=== PATIENT | female | born 1950 | race Caucasian/White ===

== ENCOUNTER 2017-02-17 13:44 | Inpatient (IN) | payer MEDICAID ==
[~2017-02-17] VITALS: Ht 167.6 cm; Wt 115.7 kg
--- NOTE | 2017-02-17 13:50 | NUR ---
[id number] FROM HOME: FEVER, FLU SYMPTOMS. A/OX 2, LETHARGIC. BREATHING EVEN AND UNLABORED. NO SOB. VITALS STABLE. SAFETY AND COMFORT MEASURES IN PLACE. AWAITING MD ORDERS.
--- NOTE | 2017-02-17 14:20 | NUR ---
NEW IV STARTED ON LAC, 20 G. BLOOD DRAWN AND SENT TO LAB.
--- NOTE | 2017-02-17 14:45 | NUR ---
URINE OBTAINED VIA STRAIGHT CATH AND SENT TO LAB PER MD ORDERS.
[2017-02-17] MEDS ORDERED: IV NS 0.9% 1,000 ML BAG IV ONE (15:00)
[2017-02-17] MEDS ORDERED: ACETAMINOPHEN 650 MG/SUPP.RECT RC ONE ×3 (15:00→21:25)
[2017-02-17 15:02] LABS: BASOPHILS % (AUTO) 0.1 % (0.0-2.0); EOSINOPHILS % (AUTO) 0.1 % (0.0-6.0); HEMATOCRIT 43 % (33-45); HEMOGLOBIN 14.1 g/dL (11.5-14.8); LYMPHOCYTES # (AUTO) 0.8 /CMM (0.8-4.8); LYMPHOCYTES % (AUTO) 5.3 % (20.0-44.0); MEAN CORPUSCULAR HEMOGLOBIN 28 PG (26.0-33.0); MEAN CORPUSCULAR HGB CONC 33 g/dl (31.0-36.0); MEAN CORPUSCULAR VOLUME 85 fL (82-100); MONOCYTES # (AUTO) 0.6 /CMM (0.1-1.30); MONOCYTES % (AUTO) 3.6 % (2.0-12.0); NEUTROPHILS % (AUTO) 90.9 % (43.0-81.0); PLATELET COUNT (AUTO) 244 /CMM (150-450); RDW COEFFICIENT OF VARIATION 13.8 (11.5-15.0); RED BLOOD CELL COUNT(AUTO) 5.01 MIL/uL (4.0-5.2); WHITE BLOOD COUNT (AUTO) 15.4 K/uL (4.3-11.0)
[2017-02-17 15:09] LABS: INR 0.98 (0.87-1.13); PROTHROMBIN TIME 10.2 SECS (9.5-12.7)
[2017-02-17 15:12] LABS: ALANINE AMINOTRANSFERASE 34 U/L (12-78); ALBUMIN 3.6 g/dL (3.4-5.0); ALKALINE PHOSPHATASE 81 U/L (46-116); ASPARTATE AMINOTRANSFERASE 20 U/L (15-37); BILIRUBIN,DIRECT 0.1 mg/dL (0.0-0.2); BILIRUBIN,TOTAL 0.9 mg/dL (0.2-1.0); CALCIUM, SERUM 9.5 mg/dL (8.5-10.1); CARBON DIOXIDE 29 mmol/L (21-32); CHLORIDE 101 mmol/L (98-107); CREATININE 0.8 mg/dL (0.6-1.3); GLUCOSE 175 mg/dL (74-106); POTASSIUM 3.8 mmol/L (3.5-5.1); SODIUM SERUM 139 mmol/L (136-145); TOTAL PROTEIN, SERUM 7.7 g/dL (6.4-8.2); UREA NITROGEN, BLOOD 17 mg/dL (7-18)
[2017-02-17 15:14] LABS: TROPONIN I < 0.017 ng/mL (0.00-0.056)
[2017-02-17 15:15] LABS: APPEARANCE,URINE CLEAR (CLEAR); BILIRUBIN,URINE NEGATIVE (NEGATIVE); BLOOD, URINE 1+ Ery/uL (NEGATIVE); COLOR,URINE YELLOW (YELLOW); KETONES,URINE NEGATIVE (NEGATIVE); LEUKOCYTE ESTERASE ,URINE NEGATIVE (NEGATIVE); NITRITE, URINE NEGATIVE (NEGATIVE); PH,URINE 7.5 (5.0-8.0); PROTEIN,URINE 3+ mg/dl (NEGATIVE); UGLUCOSE NEGATIVE (NEGATIVE)
--- NOTE | 2017-02-17 15:15 | NUR ---
PATIENT MEDICATED PER MD ORDERS.
--- NOTE | 2017-02-17 15:35 | NUR ---
PATIENT TAKEN TO CT VIA STRETCHER.
[2017-02-17 15:40] LABS: BACTERIA,URINE None seen /HPF (None Seen); SQUAMOUS EPITHELIAL CELL,UR Few /HPF (None Seen); WBC,URINE 0-2 /HPF (0-3)
--- NOTE | 2017-02-17 15:51 | NUR ---
PATIENT RETURNED FROM CT. PER BATH ATTENDANT, UNABLE TO PERFORM CT D/T PATIENT MOVING CONSTANTLY.
[2017-02-17 16:06] LABS: BAND % (MANUAL) 6 % (0.0-5.0); LYMPHOCYTES % (MANUAL) 6 % (16-48); MONOCYTES % (MANUAL) 3 % (0-11.0); NEUTROPHILS % (MANUAL) 85 (42-76)
--- NOTE | 2017-02-17 16:54 | NUR ---
CALLED , TRANSFERRED CALL TO
--- NOTE | 2017-02-17 16:54 | NUR ---
CALLED NURSING SUP. FOR TELE BED
--- NOTE | 2017-02-17 16:55 | NUR ---
PATIENT TAKEN BACK TO CT VIA STRETCHER.
--- NOTE | 2017-02-17 17:08 | NUR ---
patient returned from ct in stable condition.
[2017-02-17] MEDS ORDERED: DIGO125T PO (17:18)
[2017-02-17] MEDS ORDERED: METO25TA3 PO (17:18)
[2017-02-17] MEDS ORDERED: TRIA1TAB5 PO (17:18)
[2017-02-17] MEDS ORDERED: LISI-603 PO (17:18)
[2017-02-17] MEDS ORDERED: PRAV40TA3 PO (17:18)
--- NOTE | 2017-02-17 17:22 | NUR ---
TELE 328-2
--- NOTE | 2017-02-17 17:33 | NUR ---
REPORT GIVEN TO ERMA HANNA FOR SAVAGE UPON ADMISSION.
--- NOTE | 2017-02-17 17:57 | NUR ---
CALLED , TRANSFERRED CALL TO
[2017-02-17] MEDS ORDERED: MEROPENEM 500 MG in IV NS 0.9% 50 ML IV ONE (18:00)
[2017-02-17] MEDS ORDERED: VANCOMYCIN 1 GM in IV D5W 250 ML IV ONE (18:00)
[2017-02-17] MEDS ORDERED: OSELTAMIVIR PHOSPHATE 75 MG CAPSULE PO ONE (18:00)
[2017-02-17] MEDS ORDERED: OSELTAMIVIR PHOSPHATE 75 MG CAPSULE ONE (18:37)
--- NOTE | 2017-02-17 19:27 | NUR ---
PATIENT TRANSPORTED TO [facility] VIA ACLS PROTOCOL. RNERMA TO PROVIDE SAVAGE.
[2017-02-17 19:30] VITALS: BP 157/73
--- NOTE | 2017-02-17 19:30 | NUR ---
RN NOTES RECEIVED PATIENT FROM ER VIA GURNEY, NON-VERBAL, RESPONDS TO VERBAL AND TACTILE STIMULATION, NO SOB, ON AUSCULTATION, LUNG SOUNDS ARE CLEAR IN ALL HANKINS, ABDOMEN IS FIRM, ACTIVE BOWEL SOUNDS, LEFT AC PERIPHERAL LINE IS PATENT AND SECURED WITH DRESSING, GIVEN VANCOMYCIN AND MERREM IV ABX IN ER. TEMPERATURE IS STILL ELEVATED AT 103F, RECEIVED TYLENOL 650 MG SUPP. PATIENT IS NOT ANSWERING QUESTIONS AT THIS TIME, DAUGHTER PROVIDED MEDICAL HISTORY. ORIENTED THE FAMILY MEMBER TO USE OF BED, AND CALL LIGHT.
[2017-02-17 20:00] VITALS: BP 157/73
[2017-02-17] MEDS: ACETAMINOPHEN 650 MG/SUPP.RECT RC PRN (21:30)
[2017-02-17] MEDS ORDERED: Potassium Chloride 20 MEQ in IV D5/0.45 NACL 1,000 ML IV PRN (21:30)
--- NOTE | 2017-02-17 21:44 | NUR ---
RN NOTES RECEIVED NEW ORDERS FROM DR. SANDHU, CONTINUE HOME MEDS.
[2017-02-17] MEDS ORDERED: LISINOPRIL (20MG) 20 MG TABLET ONE (21:49)
[2017-02-17] MEDS ORDERED: METOPROLOL SUCCINATE 25 MG TAB.SR.24H ONE (21:50)
[2017-02-17] MEDS ORDERED: CEFTRIAXONE 1 G VIAL ONE (21:51)
[2017-02-17] MEDS ORDERED: CEFTRIAXONE 2 G in IV D5W 100 ML IV SCH (22:00)
[2017-02-17] MEDS ORDERED: IV PREMIX D5 1/2NS + KCL 1,000 ML IV ONE (22:03)
[2017-02-17] MEDS: LISINOPRIL (20MG) 20 MG TABLET PO SCH (22:42)
[2017-02-17] MEDS: METOPROLOL SUCCINATE 25 MG TAB.SR.24H PO SCH (22:42)
--- NOTE | 2017-02-17 22:58 | NUR ---
RN NOTES RECHECKED TEMP 100.6 F. PATIENT IS AWAKE AND ALERT AND ANSWERING QUESTIONS. DAUGHTERS AT THE BEDSIDE
--- NOTE | 2017-02-17 23:52 | NUR ---
RN NOTES RECHECK TEMP 100.1F
[2017-02-18] VITALS: BP 102/48
[2017-02-18] MEDS ORDERED: ACETAMINOPHEN 650 MG/SUPP.RECT RC ONE (01:09)
[2017-02-18] MEDS: ACETAMINOPHEN 650 MG/SUPP.RECT RC PRN ×2 (01:31→09:41)
--- NOTE | 2017-02-18 01:33 | NUR ---
RN NOTES TEMP 101.1, GIVEN TYLENOL 650 MG SUPP VIA RC, COOLING MEASURES CONTINUED
[2017-02-18 04:00] VITALS: BP 138/68
--- NOTE | 2017-02-18 05:58 | NUR ---
RN NOTES RECHECK TEMP 99.1F
--- NOTE | 2017-02-18 06:36 | NUR ---
RN NOTES PATIENT IS ASLEEP, AROUSEABLE BY VOICE AND TOUCH, ABLE TO VERBALIZE NEEDS, NO COMPLAIN OF PAIN, GIVEN TYLENOL SUPP 650 MG PRN RC FOR FEVER DURING SHIFT, LEFT AC PERIPHERAL LINE IS PATENT AND INFUSING WELL. ALL DUE MEDICATIONS GIVEN, DAUGHTER AT THE BEDSIDE, CALL LIGHT WITHIN REACH.
[2017-02-18 06:57] VITALS: BP 141/70
--- NOTE | 2017-02-18 07:25 | NUR ---
RN OPEN NOTES RECEIVED REPORT FROM WET CHAR CONVEYOR TENDER NURSE. PATIENT IS IN BED, ALERT AND ORIENTED TO NAME, PLACE AND TIME. DAUGHTER, AXEL, AT BEDSIDE. NO SIGNS AND SYMPTOMS OF DISTRESS. DENIED PAIN. BED IN LOW POSITION, LOCKED AND TWO SIDE RAILS ARE UP. CALL LIGHT WITHIN REACH FOR SAFETY. WILL CONTINUE TO MONITOR AND ASSESS PATIENT THROUGH OUT MY SHIFT
[2017-02-18 08:17] LABS: BASOPHILS % (AUTO) 0.1 % (0.0-2.0); EOSINOPHILS % (AUTO) 0.1 % (0.0-6.0); HEMATOCRIT 36 % (33-45); LYMPHOCYTES # (AUTO) 1.5 /CMM (0.8-4.8); LYMPHOCYTES % (AUTO) 9.4 % (20.0-44.0); MEAN CORPUSCULAR HEMOGLOBIN 28 PG (26.0-33.0); MEAN CORPUSCULAR HGB CONC 34 g/dl (31.0-36.0); MEAN CORPUSCULAR VOLUME 84 fL (82-100); MONOCYTES % (AUTO) 6.4 % (2.0-12.0); NEUTROPHILS # (AUTO) 13.7 /CMM (1.8-8.9); PLATELET COUNT (AUTO) 215 /CMM (150-450); RDW COEFFICIENT OF VARIATION 13.8 (11.5-15.0); RED BLOOD CELL COUNT(AUTO) 4.24 MIL/uL (4.0-5.2); WHITE BLOOD COUNT (AUTO) 16.2 K/uL (4.3-11.0)
[2017-02-18 08:57] LABS: ALANINE AMINOTRANSFERASE 33 U/L (12-78); ALKALINE PHOSPHATASE 75 U/L (46-116); ASPARTATE AMINOTRANSFERASE 45 U/L (15-37); BILIRUBIN,TOTAL 0.8 mg/dL (0.2-1.0); CALCIUM, SERUM 8.4 mg/dL (8.5-10.1); CARBON DIOXIDE 25 mmol/L (21-32); CHLORIDE 105 mmol/L (98-107); CREATININE 0.7 mg/dL (0.6-1.3); GLUCOSE 171 mg/dL (74-106); POTASSIUM 3.8 mmol/L (3.5-5.1); SODIUM SERUM 138 mmol/L (136-145); UREA NITROGEN, BLOOD 12 mg/dL (7-18)
[2017-02-18] MEDS ORDERED: OSELTAMIVIR PHOSPHATE 75 MG CAPSULE PO SCH (09:00)
[2017-02-18] MEDS: LISINOPRIL (20MG) 20 MG TABLET PO SCH (09:45)
[2017-02-18] MEDS: TRIAMTERENE/HYDROCHLOROTHIAZID (37.5/25MG) 1 UDCAP PO SCH (09:46)
[2017-02-18 09:56] LABS: DIGOXIN < 0.20 ng/mL (0.90-2.00)
[2017-02-18] MEDS ORDERED: SITA1TAB6 PO (10:16)
[2017-02-18] MEDS: DIGOXIN 0.125 MG TABLET PO SCH (10:23)
[2017-02-18] MEDS ORDERED: DEXTROSE 50%-WATER 50 ML DISP.SYRIN IV PRN (11:30)
[2017-02-18] MEDS ORDERED: INSULIN GLARGINE, 100 UNIT/ML CARTRIDGE SQ SCH ×2 (11:30→22:00)
[2017-02-18] MEDS ORDERED: INSULIN REGULAR, HUMAN 100 UNIT/ML 3 ML VIAL SQ PRN (11:30)
[2017-02-18] MEDS: BLOOD SUGAR DIAGNOSTIC 1 EACH STRIP IN SCH ×3 (11:45→22:23)
[2017-02-18] MEDS: LINAGLIPTIN 5 MG TABLET PO SCH (11:52)
[2017-02-18 16:00] VITALS: BP 141/81
[2017-02-18] MEDS: ACETAMINOPHEN 325 MG TABLET PO PRN ×2 (16:39→22:30)
--- NOTE | 2017-02-18 19:30 | NUR ---
RN CLOSING NOTES GAVE REPORT TO FUR LINER NURSE. ALL PATIENT NEEDS ANTICIPATED AND ATTENDED. NO SIGNS AND SYMPTOMS OF DISTRESS. BED IN LOW POSITION, LOCKED AND TWO SIDE RAILS ARE UP. CALL LIGHT WITHIN REACH FOR SAFETY.
--- NOTE | 2017-02-18 19:40 | NUR ---
MS/COMPLIANCE QUALITY PERFORMANCE ANALYST; RECEIVED PT IN BED AWAKE,ALERT AND ORIENTED X 3. BREATHING NON LABORED. PT SAID PER DAUGHTER THE PT IS MUCH BETTER TODAY THAN YESTERDAY. IVF ON PROGRESS. PT SUPPOSED TO TRANSFER TO OTHER HOSPITAL PER DAY SHIFT REPORT. BED ON LOWER POSITION AND LOCKED FOR SAFETY. SIDE RAILS ARE UP FOR SAFETY. FAMILY MEMBERS AT THE BEDSIDE. CONTINUE TO MONITOR.
[2017-02-18 20:00] VITALS: BP 120/67
--- NOTE | 2017-02-18 20:35 | NUR ---
MS/ALLIANCES CONSULTANT; RECEIVED A CALL AT THIS TIME FROM [facility] HE SAID HE SPOKE WITH DR. Cally SANDHU THAT PT TO TRANSFER TO [facility] IN [facility] IS AVAILABLE. HE SAID ROOM # 282 [phone]. TO CALL THIS # [phone] FOR REPORT. [facility] # [phone].
--- NOTE | 2017-02-18 20:45 | NUR ---
MS/PUBLIC WORKS SUPERVISOR; I TALKED TO THE DAUGHTER , JUSTIN AND SHE REFUSED PT TO BE TRANSFERRED . I TOLD THE CHARGE NURSE EDDIE AND HE TALKED TO THE DAUGHTERS.
--- NOTE | 2017-02-18 20:50 | NUR ---
MS/MANAGER MERCHANDISING; CHARGE NURSE EDDIE SAID TO CALL AGAIN [facility] IF IT IS OK TO TRANSFER TOMORROW. I DID CALL [facility] AGAIN AND I GAVE THE PHONE TO EDDIE AND HE SPOKE TO HIM.
--- NOTE | 2017-02-18 21:50 | NUR ---
MS/EXTRUDER OPERATOR MULTIPLE; AMBULANCE WAS HERE TO STEAMFITTER PT TO TRANSFER TO [facility] AND CHARGE NURSE TALKED TO THE AMBULANCE PERSONNEL.
[2017-02-18] MEDS ORDERED: INSULIN DETEMIR 100 UNIT/ML CARTRIDGE SQ SCH (22:00)
[2017-02-18] MEDS ORDERED: PRAVASTATIN SODIUM 20 MG TABLET PO SCH (22:00)
--- NOTE | 2017-02-18 22:00 | NUR ---
MS/EDUCATION FACULTY MEMBER; BS 99 NO COVERAGE.
[2017-02-18] MEDS: METOPROLOL SUCCINATE 25 MG TAB.SR.24H PO SCH (22:29)
--- NOTE | 2017-02-18 22:30 | NUR ---
MS/OIL AND GAS SUPERINTENDENT; TEMP. 99.7 TYLENOL 650 MG PO Q6 PRN GIVEN.
--- NOTE | 2017-02-18 23:00 | NUR ---
MS/DURABILITY ENGINEER; PER CHARGE NURSE EDDIE TOLD ME THAT PT IS NOT LEAVING TONIGHT. HE CALLED DR. Cally SANDHU AND WITH ORDER TO HOLD DC TONIGHT.
--- NOTE | 2017-02-19 06:00 | NUR ---
MS/DETECTIVE CHIEF; BS 109 NO COVERAGE GIVEN. TEMP 98.4. C/O HEADACHE TYLENOL 650 MG PO Q6 PRN GIVEN.
[2017-02-19] MEDS: ACETAMINOPHEN 325 MG TABLET PO PRN (06:10)
[2017-02-19] MEDS: BLOOD SUGAR DIAGNOSTIC 1 EACH STRIP IN SCH ×2 (06:25→11:56)
--- NOTE | 2017-02-19 07:00 | NUR ---
MS/POLISHER IMPLANT; SLEPT FAIRLY. IVF ON PROGRESS. VOIDED TO THE BATHROOM. NASAL SWAB RT NARES OBTAINED FOR MRSA . WILL ENDORSE TO THE DAY SHIFT NURSE.
--- NOTE | 2017-02-19 07:30 | NUR ---
RN OPEN NOTES RECEIVED REPORT FROM TONE ARTIST APPRENTICE NURSE. PATIENT IS IN BED, ALERT AND ORIENTED TO NAME, PLACE AND TIME. DAUGHTER AT BEDSIDE. BED IN LOW POSITION, LOCKED AND TWO SIDE RAILS ARE UP. CALL LIGHT WITHIN REACH FOR SAFETY. NO SIGNS AND SYMPTOMS OF DISTRESS. BREATHING IS UNLABORED AND EVEN BILATERALLY. WILL CONTINUE TO MONITOR AND ASSESS PATIENT THROUGH OUT MY SHIFT
[2017-02-19 07:44] LABS: BASOPHILS % (AUTO) 0.3 % (0.0-2.0); EOSINOPHILS # (AUTO) 0.1 /CMM (0.0-0.7); EOSINOPHILS % (AUTO) 0.5 % (0.0-6.0); HEMATOCRIT 35 % (33-45); HEMOGLOBIN 11.6 g/dL (11.5-14.8); LYMPHOCYTES # (AUTO) 1.9 /CMM (0.8-4.8); LYMPHOCYTES % (AUTO) 18.4 % (20.0-44.0); MEAN CORPUSCULAR HEMOGLOBIN 28 PG (26.0-33.0); MEAN CORPUSCULAR HGB CONC 33 g/dl (31.0-36.0); MEAN CORPUSCULAR VOLUME 85 fL (82-100); MONOCYTES # (AUTO) 0.6 /CMM (0.1-1.30); NEUTROPHILS # (AUTO) 7.6 /CMM (1.8-8.9); NEUTROPHILS % (AUTO) 74.8 % (43.0-81.0); PLATELET COUNT (AUTO) 188 /CMM (150-450); RDW COEFFICIENT OF VARIATION 13.9 (11.5-15.0); RED BLOOD CELL COUNT(AUTO) 4.11 MIL/uL (4.0-5.2); WHITE BLOOD COUNT (AUTO) 10.2 K/uL (4.3-11.0)
[2017-02-19 07:46] LABS: CREATININE 0.7 mg/dL (0.6-1.3); POTASSIUM 3.9 mmol/L (3.5-5.1)
[2017-02-19 08:00] VITALS: BP 141/67
[2017-02-19 09:22] VITALS: BP 141/67
[2017-02-19] MEDS: TRIAMTERENE/HYDROCHLOROTHIAZID (37.5/25MG) 1 UDCAP PO SCH (09:22)
[2017-02-19] MEDS: DIGOXIN 0.125 MG TABLET PO SCH (09:22)
[2017-02-19] MEDS: LINAGLIPTIN 5 MG TABLET PO SCH (09:22)
[2017-02-19] MEDS: LISINOPRIL (20MG) 20 MG TABLET PO SCH (09:22)
--- NOTE | 2017-02-19 11:56 | NUR ---
PATIENT REFUSED SUGAR CHECK BECAUSE SHE IS GOING HOME IN 20 MIN AND WILL CHECK HER BLOOD SUGAR AT HOME BEFORE SHE EATS LUNCH
--- NOTE | 2017-02-19 13:22 | NUR ---
CAPACITOR PACK PRESS OPERATOR NOTES PATIENT DISCHARGE ORDER RECEIVED AND CARRIED OUT. PATIENT IS BEING DISCHARGE HOME. NO SIGNS AND SYMPTOMS OF DISTRESS. NO FEVER. DENIED PAIN. ALL DISCHARGE INSTRUCTIONS EXPLAINED TO PATIENT AND PATIENT VERBALIZED UNDERSTANDING. ALL BELONGING LIST WITH PATIENT AT TIME OF DISCHARGE. PATIENT SIGNED BOTH DISCHARGE PAPERS AND BELONGING LIST FORM; FORMS PLACED IN THE CHART. NO NEW PRESCRIPTION. SKIN IS INTACT, NO NEED FOR PICTURES. IV SITE REMOVED. ID BAND REMOVED. PATIENT PICKED UP BY HER DAUGHTER IN A PRIVATE CAR. PATIENT ESCORTED TO MAIN LOBBY WITH A CIVIL DRAFTER AND A WHEELCHAIR.
== END 2017-02-19 12:45 | disposition home or self-care (01) | DRG 723 ==
LOC: ER 13:45 → TELE 18:18 → MED 02-18 08:47
PROVIDERS: ADMIT Internal Medicine; ATTEND Internal Medicine
DX: B34.9 Viral infection, unspecified (principal); G93.40 Encephalopathy, unspecified; E11.9 Type 2 diabetes mellitus without complications; I10 Essential (primary) hypertension; Z79.899 Other long term (current) drug therapy; G47.30 Sleep apnea, unspecified; E66.9 Obesity, unspecified
CPT/HCPCS: 36415; 70450-TC; 71010-TC; 80048-TC; 80053-TC; 80076-TC; 80162-TC; 81000-TC; 82962-TC; 83605-TC; 84484-TC; 85025-TC; 85730-TC; 87040-TC; 87081-TC; 87086-TC; 87400; A4216; A4606; J0696; J1815; J2185; J3370; J3480; J3490; J7030; J7060; Z7610